=== PATIENT | female | born 1965 | race Caucasian/White ===

== ENCOUNTER → 2016-11-16 | Day surgery (SDC) | payer BC ==
[~2016-11-16] VITALS: Ht 162.6 cm; Wt 37.6 kg
[~2016-11-16] MED LIST: ATIV1TAB7 PO; CALCIUM CHLORIDE 10% 1 GM/10 ML SYR As Ordered ONE; EPINEPHrine 1MG/10ML SYRINGE 1.5IN As Ordered ONE; HYDR-3713 PO; HYDROmorphone HCL 1 MG/ML SYRINGE (J1170) IV PRN; LIDOCAINE 1% SDV INJ 30 ML VIAL As Ordered ONE; LIDOCAINE 2% INJ 100 MG/5 ML SDV (FOR ANES.) As Ordered ONE; LIDOCAINE 4% TOPICAL SOLN 50 ML BTL As Ordered ONE; LIDOCAINE VISCOUS 2% SOLN 15ML UDC As Ordered ONE; LR 1,000 ML IV ONE; LR 1,000 ML IV SCH; MIDAZOLAM INJ 2 MG/2 ML VIAL (J2250) As Ordered ONE; ONDANSETRON 4MG/2ML VIAL (J2405) As Ordered ONE; ONDANSETRON 4MG/2ML VIAL (J2405) IV PRN; PERCOCET 5MG/325MG TAB PO PRN; PHENYLephrine HCL 500 MCG/5 ML (100MCG/ML) SYRINGE (J2370) As Ordered ONE; PRED10TA2 PO; ROCURONIUM BROMIDE 50 MG/5 ML VIAL/SYRINGE As Ordered ONE; SENN8.6T28 PO; SUGAMMADEX SODIUM 500 MG/5 ML VIAL (BRIDION) As Ordered ONE; THROMBIN SOLN 20,000 UNITS KIT As Ordered ONE; TIOT18INH INH; TRAZ50TA11 PO; dexameTHASONE 4 MG/ML 1ML VIAL (J1100) As Ordered ONE; fentaNYL 250 MCG/5 ML INJECTION (J3010) As Ordered ONE
--- NOTE | 2016-11-16 14:07 | RO ---
DATE OF PROCEDURE: 11/16/2016 PROCEDURE: Bronchoscopy with endobronchial ultrasound. PREOPERATIVE DIAGNOSES: Right upper lobe mass, adenopathy, abnormal chest CT. POSTOPERATIVE DIAGNOSES: Right upper lobe mass, adenopathy, abnormal chest CT. FINDINGS: Studding of tumor throughout her airways, as described below. PROCEDURALIST: Dr. Weathers BATCH DUMPER: None ANESTHESIA: General. ESTIMATED BLOOD LOSS: 15 mL. DRAINS: None. SPECIMENS OBTAINED: 1. Endobronchial biopsies of naveed, proximal left mainstem, right upper lobe and right mainstem tumor. 2. Cytobrush of right upper lobe. 3. Fine needle aspiration (FNA) subcarinal node. 4. Bronchoalveolar lavage (BAL) right upper lobe. ESTIMATED BLOOD LOSS: Approximately 15 mL. None replaced. COMPLICATIONS: No observed complications. DESCRIPTION OF PROCEDURE: After informed consent was reviewed with the patient in the preoperative area, she was brought back to the OR. General anesthesia was initiated and the case was handed over to me. Time-out was then performed with two patient identifiers identifying correct site, correct procedure. The IT190 bronchoscope was then inserted through the 8.5 endotracheal tube with Cetacaine spray for lubrication and anesthetization of the airways. The naveed was full. Trachea was midline but had some distal studding of tumor. There was studding throughout the entire right mainstem bronchus. The right upper lobe was completely occluded with tumor. The spur between the right upper lobe and bronchus intermedius was splayed and studded with tumor. The right middle lobe and right lower lobe airways were narrowed with tumor studding. The scope was able to be passed through this, distal patency. Left mainstem was studded with tumor. LB 1 through 10 was however patent without endobronchial lesion. The endobronchial biopsies were then taken of the proximal left mainstem naveed, the spur between the right upper lobe and bronchus intermedius, right mainstem bronchus and right upper lobe. Brushing of the right upper lobe was then performed. Additional endobronchial biopsies were taken of the right upper lobe. The patient had some bleeding, which was cleared with suctioning. She self anticoagulated. Fine needle aspiration was then performed of the subcarinal node. The patient had some heme with each pass. After sampling was performed, bronchoalveolar lavage was obtained of the right upper lobe. There were no observed complications. Postprocedure chest x-ray is pending.
[2016-11-16] MEDS: fentaNYL 100 MCG/2 ML INJECTION (J3010) IV PRN ×4 (14:08→14:44)
--- NOTE | 2016-11-16 14:20 | REP ---
CHEST X-RAY: Single view. HISTORY: Status post bronchoscopy. FINDINGS: Overall the lungs are hyperinflated. There is a large mass opacification throughout the upper half of the right hemithorax. This has a convex downward border suggesting tumor. There is perihilar consolidation in the aerated right lower lobe and middle lobe. There is blunting of the right lateral pleural angle consistent with some degree of right pleural fluid. Interstitial markings are increased in the left lung but no focal infiltrate is seen. The heart is not felt to be enlarged. IMPRESSION: Extensive consolidation with mass-like properties right upper lobe. Perihilar infiltrate in the right middle and lower lobe. Small right pleural effusion. No pneumothorax seen. Signed by Neal Mesa MD 11/16/2016 04:50 P
[2016-11-16 15:50] VITALS: BP 116/69
== END | disposition home or self-care (01) ==
LOC: M SDC 09:54
PROVIDERS: ATTEND Internal Medicine Pulmonary Disease
DX: C34.91 Malignant neoplasm of unspecified part of right bronchus or lung (principal); R59.0 Localized enlarged lymph nodes; R09.02 Hypoxemia; J45.909 Unspecified asthma, uncomplicated; J43.1 Panlobular emphysema; E83.52 Hypercalcemia; F17.218 Nicotine dependence, cigarettes, with other nicotine-induced disorders; R00.0 Tachycardia, unspecified; K59.00 Constipation, unspecified; F41.9 Anxiety disorder, unspecified; M12.9 Arthropathy, unspecified; R29.898 Other symptoms and signs involving the musculoskeletal system; R06.02 Shortness of breath; R06.83 Snoring; N17.9 Acute kidney failure, unspecified; N28.1 Cyst of kidney, acquired; Z79.899 Other long term (current) drug therapy; Z87.448 Personal history of other diseases of urinary system; Z86.718 Personal history of other venous thrombosis and embolism; Z87.81 Personal history of (healed) traumatic fracture; Z78.0 Asymptomatic menopausal state; Z86.59 Personal history of other mental and behavioral disorders
CPT/HCPCS: 31623; 31624; 31625; 31629; 31653; 71010; 88104; 88108; 88172; 88173; 88305; 88313; J1100; J2250; J2370; J2405; J3010